=== PATIENT | male | born 1975 | race Caucasian/White ===

== ENCOUNTER 2023-03-03 09:13 | Emergency (ER) | payer OTHER ==
[2023-03-03] MEDS ORDERED: Diazepam 10 MG/2 ML SYRINGE ONE (10:09)
[2023-03-03 10:55] LABS: Bacteria/HPF None Seen HPF (None Seen); Bilirubin Negative (Negative); Blood, Urine Negative (Negative); CAUTI Indications for Culture Pelvic or flank pain; Clarity Clear (Clear); Glucose, Urine (Dipstick) Normal (Negative); Ketone, Urine Negative (Negative); Leukocyte Negative Leu/uL (Negative); Nitrite Negative (Negative); Protein, Urine (Dipstick) 10 mg/dL (Neg-Trace); RBC/HPF 0-3 HPF (0-3); Specific Gravity, Urine 1.022 (1.002-1.036); Squamous Epithelial None Seen HPF (0-3); Urobilinogen Normal mg/dL (Less than 2); WBC/HPF None Seen HPF (0-3)
[2023-03-03 11:04] LABS: Urine Culture Reflex No No
[2023-03-03] MEDS ORDERED: HYDROcodone/Acetaminophen 10/325 mg Tablet ONE (11:19)
== END 2023-03-03 12:13 | disposition home or self-care (01) ==
LOC: ERS 09:13
DX: M54.42 Lumbago with sciatica, left side (principal); E78.00 Pure hypercholesterolemia, unspecified
CPT/HCPCS: 72100; 81001; 96372; J3360

== ENCOUNTER 2023-04-05 09:17 | Outpatient (CLI) | payer OTHER | END 2023-04-05 09:18 | disposition home or self-care (01) | LOC: SCSCT 09:17 | PROVIDERS: ATTEND Neurological Surgery | DX: M43.16 Spondylolisthesis, lumbar region (principal); M51.36 Other intervertebral disc degeneration, lumbar region; M47.816 Spondylosis without myelopathy or radiculopathy, lumbar region; M48.061 Spinal stenosis, lumbar region without neurogenic claudication | CPT/HCPCS: 72131 ==

== ENCOUNTER 2023-06-05 11:48 | Day surgery (SDC) | payer OTHER ==
[2023-06-02 10:06] VITALS: BMI 29.5
[2023-06-05] MEDS ORDERED: Ondansetron PF 4 MG/2 ML Vial ONE (14:26)
[2023-06-05] MEDS ORDERED: Midazolam HCl 2 mg/2 ml Vial ONE ×2 (14:26→14:31)
[2023-06-05] MEDS ORDERED: fentaNYL PF 100 MCG/2 ML SYRINGE ONE (14:31)
== END 2023-06-05 16:40 | disposition home or self-care (01) ==
LOC: MRI 11:48
PROVIDERS: ATTEND Neurological Surgery
DX: M43.16 Spondylolisthesis, lumbar region (principal); M54.12 Radiculopathy, cervical region; E78.00 Pure hypercholesterolemia, unspecified; G43.909 Migraine, unspecified, not intractable, without status migrainosus; Z88.0 Allergy status to penicillin; Z88.5 Allergy status to narcotic agent; Z79.891 Long term (current) use of opiate analgesic; Z79.899 Other long term (current) drug therapy
CPT/HCPCS: 72148; J2250; J2405

== ENCOUNTER 2023-07-28 09:05 | Outpatient (CLI) | payer OTHER ==
[2023-07-28 10:01] LABS: Hematocrit 40.7 % (38.8-50.0); Hemoglobin 13.7 g/dL (13.5-17.5); Mean Corpuscular HGB CONC 33.7 g/dL (32.0-36.0); Mean Corpuscular Hemoglobin 28.1 pg (27.0-33.0); Mean Corpuscular Volume 83.4 fl (81.2-95.1); Platelet Count 198 10x3/uL (150-450); RBC Distribution Width 12.5 % (11.5-14.5); Red Blood Cell (RBC) Count 4.88 10x6/uL (4.32-5.72); White Blood Cell (WBC) Count 8.5 10x3/uL (3.5-10.5)
[2023-07-28 10:11] LABS: PTT 28.2 sec (22.0-33.0); Prothrombin Time 10.5 sec (9.5-12.1)
== END 2023-07-28 09:06 | disposition home or self-care (01) ==
LOC: LABBT 09:05
PROVIDERS: ATTEND Neurological Surgery
DX: Z01.812 Encounter for preprocedural laboratory examination (principal); M43.16 Spondylolisthesis, lumbar region; M99.23 Subluxation stenosis of neural canal of lumbar region
CPT/HCPCS: 85027; 85610; 85730

== ENCOUNTER 2023-07-28 09:30 | Inpatient (IN) | payer OTHER ==
[2023-07-28 09:44] VITALS: BMI 29.5
[2023-08-01] MEDS ORDERED: LevoFLOXacin D5W 500 mg (100 mL) BAG ONE (06:15)
[2023-08-01] MEDS ORDERED: Clindamycin/D5W 900 mg/50 ml Premix Bag ONE (06:16)
[2023-08-01] MEDS ORDERED: Ketamine In 0.9 % NaCl 50 MG/5 ML SYRINGE ONE (06:22)
[2023-08-01] MEDS ORDERED: Fentanyl 250 MCG/5 ML VIAL ONE (06:22)
[2023-08-01] MEDS ORDERED: PROPOFOL 20 ML ONE (06:22)
[2023-08-01] MEDS ORDERED: Lidocaine 1% PF 5 ML VIAL ONE (06:26)
[2023-08-01] MEDS ORDERED: Rocuronium Bromide 10 MG/ML (10ML VIAL) ONE (06:26)
[2023-08-01] MEDS ORDERED: HYDROcodone/Acetaminophen 7.5/325 mg Tablet PO PRN (06:28)
[2023-08-01] MEDS ORDERED: Promethazine HCl 25 MG/ML VIAL IM PRN ×2 (06:28→10:07)
[2023-08-01] MEDS ORDERED: Ondansetron PF 4 MG/2 ML Vial IVP PRN (06:28)
[2023-08-01] MEDS ORDERED: traMADol HCl 50 MG TAB PO PRN (06:31)
[2023-08-01] MEDS ORDERED: Thrombin 5000 UNITS/5 ML VIAL ONE (06:42)
[2023-08-01] MEDS ORDERED: Vancomycin 1 GM VIAL ONE ×2 (06:42→06:52)
[2023-08-01] MEDS ORDERED: EPINEPHrine 1 MG/ML VIAL ONE (06:42)
[2023-08-01] MEDS ORDERED: Bupivacaine PF 0.5% 30 ML VIAL ONE (06:43)
[2023-08-01] MEDS ORDERED: Midazolam HCl 2 mg/2 ml Vial ONE (06:55)
[2023-08-01] MEDS ORDERED: Ondansetron PF 4 MG/2 ML Vial ONE (08:08)
[2023-08-01] MEDS ORDERED: Dexamethasone 20 MG/5 ML VIAL ONE (08:08)
[2023-08-01] MEDS ORDERED: Ketorolac Tromethamine 30 MG (1 mL) VIAL ONE (08:08)
[2023-08-01] MEDS ORDERED: Glycopyrrolate 0.2 MG/ML 5 ML SYRINGE ONE ×2 (08:25→10:24)
[2023-08-01] MEDS ORDERED: PHENYLEPHRINE-NS 100 MCG/ML 10 ML SYRINGE ONE (08:25)
[2023-08-01] MEDS ORDERED: Vecuronium 10 MG VIAL ONE (08:25)
[2023-08-01] MEDS ORDERED: Metoclopramide HCl 10 MG (2 mL) VIAL ONE (09:04)
[2023-08-01] MEDS ORDERED: HYDROmorphone 2 MG/ML VIAL SLOW IVP PRN (10:07)
[2023-08-01] MEDS ORDERED: Ondansetron HCl/PF 4 MG/2 ML Vial IVP PRN (10:07)
[2023-08-01] MEDS ORDERED: PACU-Morphine 4MG/ML VIAL SLOW IVP PRN (10:07)
[2023-08-01] MEDS ORDERED: Morphine Sulfate 2 MG/ML SYRINGE SLOW IVP PRN (10:07)
[2023-08-01] MEDS ORDERED: NEOSTIGMINE 3 MG/3 ML SYR 3 MG/3 ML SYRINGE ONE (10:24)
[2023-08-01] MEDS ORDERED: Lidocaine 2% PF 5 ML VIAL ONE (10:28)
[2023-08-01] MEDS ORDERED: fentaNYL 50 mcg/mL 1 mL Vial ONE ×2 (10:49→11:02)
[2023-08-01] MEDS ORDERED: HYDROmorphone 0.5 MG/0.5 ML SYRINGE ONE ×3 (11:14→12:25)
[2023-08-01] MEDS: Morphine 2 MG/ML VIAL SLOW IVP PRN ×4 (13:44→20:49)
[2023-08-01] MEDS: Clindamycin/D5W 900 MG in Premix 1 BAG IVPB SCH ×2 (13:55→21:26)
[2023-08-01] MEDS: Sodium Chloride 0.9% 1,000 ML IV SCH ×2 (13:55→20:49)
[2023-08-01] MEDS: Naloxegol 12.5 MG TAB PO SCH (13:55)
[2023-08-01] MEDS: tiZANidine HCl 4 MG TAB PO PRN (14:10)
[2023-08-01] MEDS: Atorvastatin Calcium 40 MG TAB PO SCH (20:48)
[2023-08-01] MEDS ORDERED: hydrOXYzine 25 MG TAB PO PRN (21:07)
[2023-08-01] MEDS ORDERED: Phenazopyridine HCl 100 MG TAB PO SCH (22:00)
[2023-08-01] MEDS: HYDROcodone/Acetaminophen 10/325 mg Tablet PO PRN (22:51)
[2023-08-01] MEDS ORDERED: Diazepam 5 MG TAB PO SCH (23:45)
[2023-08-02] MEDS: Morphine 2 MG/ML VIAL SLOW IVP PRN ×3 (01:50→08:21)
[2023-08-02] MEDS: HYDROcodone/Acetaminophen 10/325 mg Tablet PO PRN ×3 (03:20→20:02)
[2023-08-02] MEDS ORDERED: fentaNYL 50 mcg/mL 1 mL Vial SLOW IVP SCH (04:30)
[2023-08-02] MEDS: Sodium Chloride 0.9% 1,000 ML IV SCH ×2 (05:22→20:08)
[2023-08-02] MEDS: Tamsulosin HCl 0.4 MG CAP PO SCH (05:23)
[2023-08-02] MEDS ORDERED: Diazepam 5 MG TAB PO PRN (07:42)
[2023-08-02] MEDS: Naloxegol 12.5 MG TAB PO SCH (08:20)
[2023-08-02] MEDS: Gabapentin 300 MG CAP PO SCH ×3 (08:21→20:02)
[2023-08-02] MEDS: Phenazopyridine HCl 100 MG TAB PO SCH ×3 (08:21→20:02)
[2023-08-02] MEDS: tiZANidine HCl 4 MG TAB PO PRN ×2 (08:21→20:00)
[2023-08-02 11:15] LABS: #Monocytes 1.4 thou/uL (0.11-0.59); #Neutrophils 10.6 thou/uL (1.40-6.50); %Basophils 0.1 % (0.0-1.0); %Lymphocytes 12.1 % (21.0-51.0); %Neutrophils 77.4 % (42.0-75.0); Hematocrit 34.2 % (42.0-52.0); Hemoglobin 11.4 g/dL (14.0-18.0); Mean Corpuscular HGB CONC 33.3 g/dL (32.0-36.0); Mean Corpuscular Hemoglobin 28.8 pg (27.0-31.0); Mean Corpuscular Volume 86.4 fl (78.0-98.0); Mean Platelet Volume 10.2 fL (7.4-10.4); Platelet Count 185 10x3/uL (130-400); RBC Distribution Width 12.5 % (11.5-14.5); Red Blood Cell (RBC) Count 3.96 mill/uL (4.70-6.10); White Blood Cell (WBC) Count 13.7 10x3/uL (4.8-10.8)
[2023-08-02 11:30] LABS: Anion Gap 11 mmol/L (10-20); BUN (Urea Nitrogen) 16 mg/dL (8.9-20.6); Calc. Creatinine Clearance 122 mL/min (70-130); Calcium 8.4 mg/dL (7.8-10.44); Carbon Dioxide 25 mmol/L (22-29); Chloride 104 mmol/L (98-107); Estimated GFR 98; Glucose 147 mg/dL (70-105); Potassium 3.6 mmol/L (3.5-5.1); Sodium 136 mmol/L (136-145)
[2023-08-02] MEDS ORDERED: Ketorolac Tromethamine 30 MG (1 mL) VIAL IVP PRN (12:01)
[2023-08-02] MEDS ORDERED: Loratadine 10 MG TAB PO SCH (13:30)
[2023-08-02 19:47] LABS: Bacteria/HPF None Seen HPF (None Seen); Bilirubin 1+ (Negative); Blood, Urine Trace (Negative); Clarity Clear (Clear); Glucose, Urine (Dipstick) Normal (Negative); Ketone, Urine Negative (Negative); Leukocyte Negative Leu/uL (Negative); Nitrite 1+ (Negative); Protein, Urine (Dipstick) 20 mg/dL (Neg-Trace); RBC/HPF 0-3 HPF (0-3); Specific Gravity, Urine 1.017 (1.002-1.036); Squamous Epithelial None Seen HPF (0-3); WBC/HPF 0-3 HPF (0-3); pH, Urine 5.5 (5.0-9.0)
[2023-08-02] MEDS: Atorvastatin Calcium 40 MG TAB PO SCH (20:01)
[2023-08-03] MEDS: HYDROcodone/Acetaminophen 10/325 mg Tablet PO PRN ×3 (00:59→10:33)
[2023-08-03] MEDS: Tamsulosin HCl 0.4 MG CAP PO SCH (05:09)
[2023-08-03] MEDS: tiZANidine HCl 4 MG TAB PO PRN (05:18)
[2023-08-03] MEDS: Naloxegol 12.5 MG TAB PO SCH (05:24)
[2023-08-03] MEDS: Gabapentin 300 MG CAP PO SCH (08:02)
[2023-08-03] MEDS: Phenazopyridine HCl 100 MG TAB PO SCH (08:03)
[2023-08-03] MEDS ORDERED: Polyethylene Glycol 3350 17 GM Packet PO SCH (09:00)
[2023-08-03] MEDS ORDERED: Loratadine 10 MG TAB PO SCH (09:00)
[2023-08-03 10:38] VITALS: BP 108/64; TEMP 99.5
== END 2023-08-03 11:10 | disposition home or self-care (01) | DRG 455 ==
LOC: SURG A 08-01 05:42 → T4-A 08-01 13:10
PROVIDERS: ADMIT Neurological Surgery; ATTEND Neurological Surgery
PROC: 01NB0ZZ Release Lumbar Nerve, Open Approach (ICD-10-PCS; principal; 2023-08-01)
PROC: 0SG00AJ Fusion of Lumbar Vertebral Joint with Interbody Fusion Device, Posterior Approach, Anterior Column, Open Approach (ICD-10-PCS; 2023-08-01)
PROC: 0SG0071 Fusion of Lumbar Vertebral Joint with Autologous Tissue Substitute, Posterior Approach, Posterior Column, Open Approach (ICD-10-PCS; 2023-08-01)
PROC: 00BY0ZZ Excision of Lumbar Spinal Cord, Open Approach (ICD-10-PCS; 2023-08-01)
PROC: 3E033XZ Introduction of Vasopressor into Peripheral Vein, Percutaneous Approach (ICD-10-PCS; 2023-08-01)
DX: M48.061 Spinal stenosis, lumbar region without neurogenic claudication (principal); M43.16 Spondylolisthesis, lumbar region; E78.00 Pure hypercholesterolemia, unspecified; M19.90 Unspecified osteoarthritis, unspecified site; Z98.890 Other specified postprocedural states; Z79.899 Other long term (current) drug therapy; Z88.0 Allergy status to penicillin; Z88.5 Allergy status to narcotic agent; G54.9 Nerve root and plexus disorder, unspecified
CPT/HCPCS: 36415; 80048; 81001; 85025; A4314; C1713; C1889; J0171; J1100; J1170; J1885; J1956; J2001; J2250; J2272; J2405; J2704; J2765; J3010; J3370; J3490; J7050; S0020